=== PATIENT | male | born 1965 | race Two or more races ===

== ENCOUNTER 2024-09-17 18:06 | Emergency (ER) | payer OTHER, SELFPAY ==
[2024-09-17 18:09] VITALS: BP 165/96; PULSE 73; RESP 18; TEMP 36.4; O2SAT 95
--- NOTE | 2024-09-17 18:54 | XR_ITS ---
Examination: Duplex scan of the lower extremity, unilateral left Date and time of exam: September 17, 2024 1922 hours INDICATIONS: Redness swelling and pain involving the leg 2 months Technique: Duplex scan of the extremity veins using B-mode/grayscale imaging and Doppler spectral analysis and color flow Attention is directed to internal echogenicity, compression and augmentation involving these veins, color flow assessment, spectral analysis Findings: Major deep venous structures in the extremity demonstrate normal course and caliber. There is no evidence of deep vein thrombosis. Normal color flow and spectral analysis 4.7 cm left groin lymph node Impression: Negative for DVT..
--- NOTE | 2024-09-17 19:10 | PD.EDSKIN ---
ED Skin Abcess FB-RME/HPI General Chief complaint: Medical Clearance Stated complaint: INTERMEDIATE CLEARANCE Time Seen by Provider: 09/17/24 18:54 Arrival date/time: 09/17/24 18:06 58M with history of hep C presents to ED with PD for LLE swelling and swelling. Patient recently was admitted to another hospital for this complaint and given 2 months of antibiotics for cellulitis. Patient was sent here today to r/o DVT. Patient denies SOB. Patient states overall, his symptoms are improving. Limitations: no limitations Review of Systems Review of Systems Systems Reviewed: All systems reviewed, normal except as documented Constitutional Constitutional: Reports system reviewed and no additional complaints, except as documented, Denies fever(s) and Denies headache(s) ENT Ears, Nose, Mouth, and Throat: Denies disequilibrium and Denies headache(s) Cardiovascular Cardiovascular: Reports system reviewed and no additional complaints, except as documented, Denies chest pain and Denies dyspnea Respiratory Respiratory: Reports system reviewed and no additional complaints, except as documented, Denies cough and Denies dyspnea Gastrointestinal Gastrointestinal: Reports system reviewed and no additional complaints, except as documented, Denies abdominal pain, Denies nausea and Denies vomiting Integumentary/Breasts Skin/Breast: Reports as per HPI and Reports skin swelling Neurologic Neurologic: Reports system reviewed and no additional complaints, except as documented, Denies confusion, Denies disequilibrium and Denies headache(s) Psychiatric Psychiatric: Denies confusion Past Medical History Social History SMOKING STATUS: Current every day smoker ED Exam General Limitations: Present no limitations General appearance: Present alert and in no apparent distress Head Head exam: Present atraumatic Eye Eye exam: Present normal appearance, PERRL and EOMI ENT ENT exam: Present normal exam, normal oropharynx and mucous membranes moist Neck Neck exam: Present normal inspection, full ROM and trachea midline Chest Chest inspection: Present normal inspection and symmetric chest wall rise Respiratory Respiratory exam: Present normal lung sounds bilaterally Cardiovascular Cardiovascular exam: Present regular rate, normal rhythm and normal heart sounds Abdominal Exam Abdominal exam: Present soft and normal bowel sounds Extremities Exam Extremities exam: Present full ROM Expanded Lower Extremity Exam Lower leg exam: Present full ROM (L), swelling, ecchymosis and erythema Ankle exam: Present full ROM, swelling, ecchymosis and erythema Foot/toe exam: Present full ROM, swelling, ecchymosis and erythema Back Exam Back exam: Present normal inspection and full ROM Neurological Exam Neurological exam: Present alert, oriented X3 and CN II-XII intact Psychiatric Psychiatric exam: Present normal affect and normal mood Skin Skin exam: Present warm, dry, intact and normal color Course Quality Measures none Orders Category Date Time Status Wound Care NOW Care 09/17/24 20:05 Active US venous doppler LE LT Stat Exams 09/17/24 18:54 Completed Vital Signs Vital signs: Vital Signs Temperature 97.5 F 09/17/24 18:09 Pulse Rate 73 09/17/24 18:09 Respiratory Rate 18 09/17/24 18:09 Blood Pressure 165/96 H 09/17/24 18:09 Pulse Oximetry (%) 95 09/17/24 18:09 Oxygen Delivery Method Room Air 09/17/24 18:09 O2 at 95% on RA and WNLs Skin / Abscess / Foreign Body MDM Narrative MDM Narrative:: 58M with history of hep C presents to ED with PD for LLE swelling and swelling. Patient recently was admitted to another hospital for this complaint and given 2 months of antibiotics for cellulitis. Patient was sent here today to r/o DVT. Patient denies SOB. Patient states overall, his symptoms are improving. Physical exam reveals LLE redness/bruising, swelling, but no overt tenderness. Skin in warm. Distal pulses present. Gait normal. ROM intact. Normal WOB. Patient is afebrile, calm, and alert. US no DVT. Likely remaining cellulitis. Spoke to Dr. Zavaleta, patient's doctor in senior living, who agrees with A&P including to resume doxy and Keflex. Patient data External records reviewed:: [facility] previous records Clinical information provided by:: patient and law enforcement Social determinants that could affect healthcare access:: none Patient has the following chronic illnesses:: none How is presenting disease/condition affected by chronic disease/condition?: no chronic disease Evaluation data The following diagnostics were reviewed and interpreted by me:: radiology exam(s) Lab and/or radiology exams considered but not ordered:: ordered Interpretation Summary: above Medications / Prescriptions Medications or Prescriptions considered but not ordered:: not ordered Medication administrations:: n/a Consultations Consultation(s) initiated? (list below): Yes Diagnosis Skin/Abscess Differential Diagnosis: abscess of skin or subcutaneous tissue, viral exanthem, dermatophytosis, urticaria, herpes zoster, allergic reaction to drug, cellulitis, eczema, insect bites, impetigo, contact dermatitis and other (DVT, arterial block) Most likely diagnosis given after review of the tests above:: cellulitis Admission Indicated Admission indicated?: not indicated Admission Request Was there a request for admission?: No Disposition Plan Disposition Plan: Discharge Discharge Attestation Discharge Attestation: The patient and all family members were given an opportunity to ask questions and understood the discharge instructions. Discharge instructions specifically effects, indications for sooner follow up or return to the emergency department, and the expected course of current diagnosis. Patient condition: Stable Discharge Plan Plan Patient Disposition: [facility]/Court/Law Disposition Comment: Stable Prescriptions/Referrals Referrals: No Primary/Family,Physician [Primary Care Provider] - In 1 week Problem List Clinical Impression: Cellulitis Patient/Caregiver Discharge Instructions Education Materials: ED Cellulitis Additional Instructions: Please follow-up with PCP within 24-48 hours and return immediately if symptoms worsen. Recommend resuming another course of ABX. Print Language: Citizen Of [place] EDMOND/GELY Supervising Physician EDMOND/GELY Supervising Physician: Dr. Zamorano
== END 2024-09-17 20:33 ==
PROVIDERS: Emergency Provider Emergency Medicine
DX: L03.116 Cellulitis of left lower limb (principal); Z86.19 Personal history of other infectious and parasitic diseases
CPT/HCPCS: 93971; 99281